=== PATIENT | female | born 1945 | race African-American/Black ===

== ENCOUNTER 2016-10-04 09:45 | Outpatient (RCR) | payer OTHER ==
[~2016-10-04 09:45] MED LIST: AMLODIPINE BESY10 MG PO; CLONIDINE 0.2M0.2 MG PO; FISH OIL 1,0001 EACH PO; FLAXSEED OIL1000 MG PO; FLEXERIL5 MG PO; KEFLEX500 MG ORAL; MOTRIN800 MG PO; NEURONTIN300 MG PO; STOOL SOFTENER
== END 2016-11-01 | disposition home or self-care (01) ==
LOC: PTY 09:45
PROVIDERS: ATTEND Internal Medicine
DX: M25.552 Pain in left hip (principal); M79.605 Pain in left leg; I10 Essential (primary) hypertension; Z96.641 Presence of right artificial hip joint
CPT/HCPCS: 97035; 97110; 97140; 97162; G0283

== ENCOUNTER 2016-11-03 11:15 | Outpatient (RCR) | payer OTHER | END 2016-11-29 | disposition home or self-care (01) | LOC: PTY 11:15 | PROVIDERS: ATTEND Internal Medicine | DX: M25.552 Pain in left hip (principal); M79.605 Pain in left leg; I10 Essential (primary) hypertension; Z96.641 Presence of right artificial hip joint ==